=== PATIENT | female | born 1970 | race Two or more races ===

== ENCOUNTER 2024-09-11 05:35 | Observation (INO) | payer BC ==
[2024-09-06 14:45] LABS: BASOPHILS # (AUTO) 0.1 X10'3 (0-0.2); BASOPHILS % (AUTO) 0.8 % (0-1); EOSINOPHILS # (AUTO) 0.3 X10'3 (0-0.9); EOSINOPHILS % (AUTO) 2.7 % (0-6); LYMPHOCYTES # (AUTO) 2.8 X10'3 (1.1-4.8); LYMPHOCYTES % (AUTO) 29.4 % (21-51); MEAN CORPUSCULAR HEMOGLOBIN 29.6 PG (27.0-31.0); MEAN CORPUSCULAR HGB CONC 33.4 g/dL (33.0-36.5); MEAN CORPUSCULAR VOLUME 88.8 FL (78-98); MEAN PLATELET VOLUME 7.6 FL (7.4-10.4); MONOCYTES # (AUTO) 0.6 X10'3 (0-0.9); MONOCYTES % (AUTO) 6.7 % (2-12); NEUTROPHILS # (AUTO) 5.7 X10'3 (1.8-7.7); NEUTROPHILS % (AUTO) 60.4 % (42-75); PRE OP HEMATOCRIT 44.2 % (35.0-45.0); PRE OP HEMOGLOBIN 14.8 g/dL (12.0-16.0); PRE OP PLATELET COUNT 371 X10'3 (140-440); PRE OP WHITE BLOOD COUNT 9.4 10'3 (4.8-10.8); RED BLOOD COUNT 4.98 X10'6 (4.20-5.60); RED CELL DISTRIBUTION WIDTH 13.6 % (11.5-14.5)
[2024-09-06 14:52] LABS: PRE OP INR 1.1 INR; PRE OP PROTIME 11.4 SECONDS (9.0-12.0)
[2024-09-06 14:55] LABS: ALBUMIN 3.9 G/DL (3.4-5.0); ALKALINE PHOSPHATASE 64 IU/L (46-116); BLOOD UREA NITROGEN 8 MG/DL (7-18); BUN/CREATININE RATIO 12.9 (10.0-20.0); CHLORIDE 104 MMOL/L (99-107); CREATININE 0.62 MG/DL (0.40-0.90); PRE OP ALT 26 U/L (30-65); PRE OP ANION GAP 6 (8-16); PRE OP AST 15 U/L (10-37); PRE OP BILIRUB, TOTAL 0.9 MG/DL (0.0-1.0); PRE OP GLUCOSE 95 MG/DL (70-104); PRE OP POTASSIUM 3.6 MMOL/L (3.4-5.1); PRE OP SODIUM 138 MMOL/L (135-145); TOTAL PROTEIN 7.7 G/DL (6.4-8.2); eGFR > 90 ML/MIN
[~2024-09-11] VITALS: Ht 157.5 cm; Wt 91.0 kg
[2024-09-11] VITALS (34 sets, daily range): BP systolic 91–128; BP diastolic 23–91; PULSE 73–136; RESP 11–22; TEMP 98–99.3; O2SAT 93–98
[~2024-09-11 05:35] MED LIST: CYCL-1 PO; GABA-1405 PO; TRAM50TA2 PO
[2024-09-11] MEDS: famotidine 20mg tablet PO ONE (06:10)
[2024-09-11] MEDS: ringers solution, lacted 1,000 ML IV SCH ×3 (06:13→11:42)
[2024-09-11] MEDS: ceFAZolin 2gm in dextrose, iso 50 ML IV ONE (06:15)
[2024-09-11] MEDS: BUPIVAcaine 2.5mg/ml inj 50ml vial (contains preservative) ONE ×2 (06:36→07:18)
[2024-09-11] MEDS: methylene blue (5mg/ml) 50mg/10ml ampul IV ONE (06:36)
[2024-09-11] MEDS: BUPIVACAINE liposomal/PF 13.3 MG/ML vial IM ONE ×2 (06:37→07:19)
[2024-09-11] MEDS: dexmedetomidine 200mcg/2ml inj. IV ONE (07:18)
[2024-09-11] MEDS ORDERED: fentaNYL/PF 50MCG/1 ML 2ML syringe ONE ×2 (07:31→08:35)
[2024-09-11] MEDS ORDERED: midazolam 1 mg/ML 2ml injection ONE (07:31)
[2024-09-11] MEDS ORDERED: hydrALAZINE 20mg/ml inj. IV PRN (07:40)
[2024-09-11] MEDS ORDERED: morphine 2 MG/ML inj. syringe IV PRN (07:40)
[2024-09-11] MEDS ORDERED: labetalol 20mg/4ml (5mg/ml) syringe IV PRN (07:40)
[2024-09-11] MEDS ORDERED: ondansetron/PF 4mg/2ml inj IV PRN ×2 (07:40→11:15)
[2024-09-11] MEDS ORDERED: fentaNYL/PF 50MCG/1 ML 2ML syringe IV PRN ×2 (07:40)
[2024-09-11] MEDS ORDERED: sevoflurane 250ml liquid IH ONE (07:43)
[2024-09-11] MEDS ORDERED: acetaminophen 1,000mg/100ml IV 100 ML IV ONE (08:12)
[2024-09-11] MEDS ORDERED: LIDOcaine 2% (20mg/ml) 5ml vial ONE (08:13)
[2024-09-11] MEDS ORDERED: propofol inj 20 ML IV ONE (08:13)
[2024-09-11] MEDS ORDERED: dexamethasone sod phosphate 4mg/ml inj. ONE (08:13)
[2024-09-11] MEDS ORDERED: ondansetron/PF 4mg/2ml inj ONE (08:33)
[2024-09-11] MEDS: morphine 4 MG/ML inj SYRINge IV PRN (11:41)
[2024-09-11] MEDS: HYDROcodone/acetaminophen 5mg/325mg tablet PO PRN (12:37)
[2024-09-11] MEDS: cyclobenzaprine 10mg tablet PO SCH (16:03)
[2024-09-11] MEDS: ceFAZolin/D5W- 1GM premix 50 ML IV SCH (17:38)
[2024-09-11] MEDS: morphine 2 MG/ML inj. syringe IV PRN (17:39)
[2024-09-11] MEDS: gabapentin 300mg capsule PO SCH (19:31)
[2024-09-11] MEDS: traMADol 50MG tablet PO SCH (19:32)
[2024-09-12] VITALS (7 sets, daily range): BP systolic 93–119; BP diastolic 44–86; PULSE 86–118; RESP 16–19; TEMP 97.5–98; O2SAT 95–96
[2024-09-12 06:09] LABS: BASOPHILS % (AUTO) 0.3 % (0-1); EOSINOPHILS % (AUTO) 0.1 % (0-6); HEMATOCRIT 34.5 % (35.0-45.0); HEMOGLOBIN 12.1 g/dl (12.0-16.0); LYMPHOCYTES # (AUTO) 3.5 X10'3 (1.1-4.8); LYMPHOCYTES % (AUTO) 23.7 % (21-51); MEAN CORPUSCULAR HEMOGLOBIN 30.9 PG (27.0-31.0); MEAN CORPUSCULAR VOLUME 88.3 FL (78-98); MEAN PLATELET VOLUME 8.1 FL (7.4-10.4); MONOCYTES # (AUTO) 1.2 X10'3 (0-0.9); MONOCYTES % (AUTO) 7.9 % (2-12); PLATELET COUNT 337 X10'3 (140-440); RED BLOOD COUNT 3.91 X10'6 (4.20-5.60); RED CELL DISTRIBUTION WIDTH 13.4 % (11.5-14.5); WHITE BLOOD COUNT 14.7 X10'3 (4.5-11.0)
[2024-09-12] MEDS: magnesium hydroxide 30ml (MOM) UD suspension PO ONE (10:58)
[2024-09-12] MEDS: HYDROcodone/acetaminophen 5mg/325mg tablet PO PRN (14:42)
[2024-09-12] MEDS: docusate sod 100mg capsule PO SCH (14:42)
[2024-09-12] MEDS: bisacodyl 10mg suppository rectal RC ONE (14:51)
== END 2024-09-12 15:50 | disposition home or self-care (01) ==
LOC: PAS 05:35 → PACU 11:35 → SUR 3N 11:35 → UNDOADMOB 11:35
PROVIDERS: ADMIT Surgery; ATTEND Surgery
DX: C50.912 Malignant neoplasm of unspecified site of left female breast (principal); D50.8 Other iron deficiency anemias; G89.29 Other chronic pain; M54.9 Dorsalgia, unspecified; G43.909 Migraine, unspecified, not intractable, without status migrainosus; F41.8 Other specified anxiety disorders; M19.90 Unspecified osteoarthritis, unspecified site; E66.9 Obesity, unspecified; Z68.36 Body mass index [BMI] 36.0-36.9, adult; Z90.13 Acquired absence of bilateral breasts and nipples; Z79.899 Other long term (current) drug therapy
CPT/HCPCS: 19303; 36415; 38525; 38900; 80053; 82948; 85025; 85610; 85730; 87081; 93005; 96365; 96366; 96375; 96376; A6258; C9290; G0378; J0131; J0690; J1100; J2250; J2270; J2405; J2704; J3010; J3490; J7120; Q9968; A4215; A4618; A6253; A6449; A7000; C9250